=== PATIENT | male | born 1935 | race Caucasian/White ===

== ENCOUNTER → 2016-09-27 | Outpatient (CLI) | payer BC | LOC: BMCIMAGING 07:39 | PROVIDERS: ATTEND Family Medicine | DX: R60.1 Generalized edema (principal) ==

== ENCOUNTER → 2016-11-01 | Outpatient (CLI) | payer BC | LOC: BMCIMAGING 15:29 | PROVIDERS: ATTEND Internal Medicine Rheumatology | DX: M11.841 Other specified crystal arthropathies, right hand (principal); M11.842 Other specified crystal arthropathies, left hand ==

== ENCOUNTER → 2017-09-05 | Outpatient (CLI) | payer BC | LOC: FIMAGING 12:38 | PROVIDERS: ATTEND Orthopaedic Surgery | DX: Z01.818 Encounter for other preprocedural examination (principal); M25.861 Other specified joint disorders, right knee; M25.461 Effusion, right knee ==

== ENCOUNTER 2017-09-19 09:18 | Observation (INO) | payer OTHER, BC ==
--- NOTE | 2017-09-19 07:09 | PDHPUP ---
History & Physical Update H&P update statement: This history and physical update is based on an assessment of the patient which was completed after admission or registration (within 24 hours), but prior to the surgery/procedure. H&P update: H&P reviewed & patient examined, no change in patient's condition since H&P completed
[~2017-09-19 09:18] MED LIST: ROPIVACAINE 0.2% 80 MG, EPINEPHrine 0.2 MG, KETOROLAC TROMETHAMINE 30 MG in SYRINGE 0 ML IU ONE; TRANEXAMIC ACID 3,000 MG in NS (SYRINGE) 50 ML IRR ONE; TRANEXAMIC ACID 3,000 MG/50 ML BAG IRR ONE; VANCOMYCIN 1 GM VIAL ONE
[2017-09-19] MEDS ORDERED: DEXAMETHASONE 4 MG/ML VIAL IVP ONE (09:46)
[2017-09-19] MEDS ORDERED: FAMOTIDINE 20 MG TAB PO ONE (09:46)
[2017-09-19] MEDS ORDERED: ceFAZolin 2 GM/SWFI 2 GM/20 ML SYR IVP ONE (09:46)
[2017-09-19] MEDS ORDERED: ACETAMINOPHEN 325 MG TAB PO ONE (09:46)
[2017-09-19] MEDS ORDERED: LR 1,000 ML IV ONE (10:22)
[2017-09-19] MEDS ORDERED: MIDAZOLAM 2 MG/2 ML VIAL IVP ONE (10:23)
--- NOTE | 2017-09-19 10:23 | PDANEPAE ---
ANE Past Medical History - Cardiovascular History Hx Hypertension: Yes Hx Arrhythmias: No Hx Chest Pain: No Hx Coronary Artery / Peripheral Vascular Disease: No Hx CHF / Valvular Disease: No Hx Palpitations: No - Pulmonary History Hx COPD: No Hx Asthma/Reactive Airway Disease: No Hx Recent Upper Respiratory Infection: No Hx Oxygen in Use at Home: No Hx Sleep Apnea: No Sleep Apnea Screening Result - Last Documented: Positive - Neurologic History Hx Cerebrovascular Accident: No Hx Seizures: No Hx Dementia: No - Endocrine History Hx Diabetes: No - Renal History Hx Renal Disorders: Yes Renal History Comment: TWICE A DAY SELF CATHS - Liver History Hx Hepatic Disorders: No - Neurological & Psychiatric Hx Hx Neurological and Psychiatric Disorders: No - Cancer History Hx Cancer: Yes Cancer History Comment: SKIN - Congenital Disorder History Hx Congenital Disorders: No - GI History Hx Gastrointestinal Disorders: No - Other Health History Other Health History: TINNITUS. GOUT RT BIG TOE - Chronic Pain History Chronic Pain: Yes (RT KNEE) - Surgical History Prior Surgeries: GREEN LIGHT LASER 01/2011. BLADDER LASER X2. DISCECTOMY. TONSILLECTOMY. RT CATARACT. COLONOSCOPY ANE Review of Systems Review of Systems: - Exercise capacity METS (RN): 6 METS ANE Patient History - Allergies Allergies/Adverse Reactions: No Known Allergies Allergy (Verified 08/27/17 10:31) - Home Medications Home Medications: Irbesartan [Avapro 300 mg] 300 mg PO DAILY 08/27/17 [Last Taken 09/18/17] Metoprolol Succinate Xr [Toprol Xl 25 mg (*)] 25 mg PO DAILY 08/27/17 [Last Taken 09/18/17] Simvastatin 10 mg PO DAILY 08/27/17 [Last Taken 09/18/17] - NPO status NPO Since - Liquids (Date): 09/19/17 NPO Since - Liquids (Time): 07:00 NPO Since - Solids (Date): 10/16/17 NPO Since - Solids (Time): 22:00 - Anes Hx Anes Hx: no prior problems - Smoking Hx Smoking Status: Never smoked ANE Labs/Vital Signs - Vital Signs Blood Pressure: 140/85 Heart Rate: 66 Respiratory Rate: 14 O2 Sat (%): 97 Height: 173.99 cm Weight: 75.75 kg ANE Physical Exam - Airway Neck exam: FROM Mallampati Score: Class 2 Mouth exam: normal dental/mouth exam - Pulmonary Pulmonary: no respiratory distress, no rales or rhonchi, clear to auscultation - Cardiovascular Cardiovascular: regular rate and rhythym, no murmur, rub, or gallop ANE Anesthesia Plan Anesthesia Plan: spinal Regional Anesthesia: adductor canal FNB
[2017-09-19] MEDS ORDERED: MIDAZOLAM 2 MG/2 ML VIAL ONE (10:26)
[2017-09-19] MEDS ORDERED: PROPOFOL/EMULSION 500 MG/50 ML BOTTLE IV ONE (10:28)
[2017-09-19] MEDS ORDERED: fentaNYL 100 MCG/2 ML INJ IVP PRN (10:35)
[2017-09-19] MEDS ORDERED: LABETALOL HCL 5 MG/ML 20 ML MDV IVP PRN (10:35)
[2017-09-19] MEDS ORDERED: LR 500 ML IV PRN (10:35)
[2017-09-19] MEDS ORDERED: PROMETHAZINE HCL 25 MG/ML INJ IVP PRN ×2 (10:35→12:05)
[2017-09-19] MEDS ORDERED: NALOXONE HCL 0.4 MG/ML INJ IVP PRN (10:35)
[2017-09-19] MEDS ORDERED: ONDANSETRON 4 MG/2 ML VIAL IVP PRN ×2 (10:35→12:05)
[2017-09-19] MEDS ORDERED: ENALAPRILAT DIHYDRATE 1.25 MG/ML VIAL IVP PRN (10:35)
[2017-09-19] MEDS ORDERED: BUPIVACAINE/EPI 0.5% 30 ML SDV ONE (10:39)
[2017-09-19] MEDS ORDERED: DEXAMETHASONE 4 MG/ML VIAL ONE (10:58)
[2017-09-19] MEDS ORDERED: LACTULOSE 20 GM/30 ML UDCUP PO PRN (12:05)
[2017-09-19] MEDS ORDERED: ONDANSETRON DISINTEGRATING 4 MG TAB PO PRN (12:05)
[2017-09-19] MEDS ORDERED: DIPHENOXYLATE/ATROPINE LOMOTIL 1 TAB PO PRN (12:05)
[2017-09-19] MEDS ORDERED: PROMETHAZINE HCL 25 MG SUPPR PR PRN (12:05)
[2017-09-19] MEDS ORDERED: diphenhydrAMINE 25 MG CAP PO PRN (12:05)
[2017-09-19] MEDS ORDERED: CYCLOBENZAPRINE 10 MG TAB PO PRN (12:05)
[2017-09-19] MEDS ORDERED: POLYETHYLENE GLYCOL 3350 17 GM PKT PO PRN (12:05)
[2017-09-19] MEDS ORDERED: TEMAZEPAM 15 MG CAP PO PRN (12:05)
[2017-09-19] MEDS ORDERED: MAGNESIUM HYDROXIDE 30 ML UDCUP PO PRN (12:05)
[2017-09-19] MEDS ORDERED: METOCLOPRAMIDE 10 MG/2 ML VIAL IVP PRN (12:05)
[2017-09-19] MEDS ORDERED: BISACODYL 10 MG SUPP PR PRN (12:05)
[2017-09-19] MEDS ORDERED: oxyCODONE IR 5 MG TAB PO PRN (12:05)
--- NOTE | 2017-09-19 12:09 | POSTOPPROG ---
Post Op Note Date of Operation: 09/19/17 Surgeon: Thomas Alvarenga Senior Applications Developer: leonard alvarenga Anesthesiologist: dr. escobar Anesthesia: Spinal, Other (Specify) (adductor canal block) Pre-op Diagnosis: right knee OA Post-op Diagnosis: same Indication: right knee pain due to OA that failed conservative measures Procedure: R med MPL Findings: severe medial knee OA Inf/Abcess present in the surg proc area at time of surgery?: No EBL: 50-100
[2017-09-19] MEDS ORDERED: LR 1,000 ML IV SCH (12:30)
--- NOTE | 2017-09-19 12:31 | POSTANESTH ---
Post Anesthetic Evaluation Cardiovascular Status: Normal, Stable, Similar to Pre-Op Cond Respiratory Status: Normal, Stable, Similar to Pre-op Cond. Level of Consciousness/Mental Status: Can Participate in Eval, Alert and Oriented Pain Control: Adequate, Prn Tx Ordered Nausea/Vomiting Control: Adequate, Prn Tx Ordered Complications Possibly Related to Anesthesia: None Noted (Adductor canal nerve block done in PACU.)
[2017-09-19 12:52] VITALS: TEMP 97.2
[2017-09-19] MEDS ORDERED: ceFAZolin 2 GM/DEXTROSE 100 ML IV SCH (14:00)
[2017-09-19 14:24] VITALS: RESP 16
[2017-09-19 16:39] VITALS: O2SAT 97
[2017-09-19 16:40] VITALS: BP 157/88; PULSE 71
[2017-09-19] MEDS ORDERED: ceFAZolin 2 GM/SWFI 2 GM/20 ML SYR IVP SCH (17:00)
[2017-09-19] MEDS ORDERED: ACETAMINOPHEN 325 MG TAB PO SCH (18:00)
[2017-09-19] MEDS ORDERED: SENNOSIDES/DOCUSATE SODIUM TAB PO SCH (21:00)
[2017-09-19] MEDS ORDERED: FAMOTIDINE 20 MG TAB PO SCH (21:00)
[2017-09-19] MEDS ORDERED: ASPIRIN 81 MG CHEWABLE TAB PO SCH (21:00)
--- NOTE | 2017-09-20 02:03 | GOP ---
[f rep st] OPERATIVE REPORT DATE OF OPERATION: 09/19/2017 SURGEON: Erin Alonzo MD CHOPPER OPERATOR: DANIELE Matthews. ANESTHESIA: Spinal. PREOPERATIVE DIAGNOSIS: Right knee osteoarthritis. POSTOPERATIVE DIAGNOSIS: Right knee osteoarthritis. PROCEDURE PERFORMED: right medial compartment partial knee replacement with computer navigation and robotic assist. FINDINGS: ESTIMATED BLOOD LOSS: 30 cc. INDICATIONS: This is an 82-year-old gentleman with progressive pain of the right knee unresponsive to conservative care. Risks and benefits of surgical intervention were explained in detail. DESCRIPTION OF PROCEDURE: The patient was brought to the operating room and placed on the table in supine position. Spinal anesthesia was induced without difficulty. A pneumatic tourniquet was applied about the right proximal thigh and the leg was prepped and draped in sterile fashion. Attention was turned first to the distal aspect of the right femur. At 3 cm proximal to the lateral rise of the femur, 2 percutaneous half pins were placed for fixation of the femoral array. In a similar fashion, 2 pins were placed anterolateral on the tibia for fixation of the tibial array. External land marking and registration of the hip center was performed without difficulty. After exsanguination by elevation, the tourniquet was inflated to 250 mmHg. Incision was made from the tibial tuberosity to the superior pole of the patella. Dissection was carried out through the subcutaneous tissue to the deep fascia using Bovie electrocautery for hemostasis. Medial parapatellar arthrotomy was carried out to the superior pole of the patella. The medial collateral ligament was elevated and the infrapatellar fat pad was resected. Internal femoral and tibial registration was carried out without difficulty and the femoral and tibial checkpoints were placed and verified for accuracy. Attention was turned to the femur. The foot print for the size 5 femoral component was cut with the 6 mm bur using the [employer] robotic system and verified for accuracy against the CT based plan. The hole was cut for the femoral post. In a similar fashion, the 6 mm bur was used to cut the foot print for the size 4 tibial component using the [employer] system and verified for accuracy against the CT based plan. Attention was turned to the posterior aspect of the knee and remnants of the medial meniscus were excised. The posterior capsule was injected with ropivacaine, epinephrine and Toradol. Trial reduction was carried out and there was excellent range of motion, alignment and stability using the size 5 femoral component and the size 4 tibial component, 4 x 9 mm polyethylene. All trials were then removed. The joint was thoroughly irrigated and carefully dried. One package of cement and 1 gram of vancomycin were mixed in the vacuum mixer and placed on the fixation surfaces of all components. The components were implanted and all excess cement was thoroughly removed. Implant placement was verified against the CT view plan and found to be excellent. The tourniquet was deflated and all bleeders were coagulated. The wound was thoroughly irrigated and closed using interrupted sutures of 2-0 Vicryl for the joint capsule. The subcu was closed with 3-0 Vicryl and the skin with 4-0 Monocryl. Dermabond and Steri-Strips were applied, followed by a compressive dressing. The patient was then moved from the operating room to the recovery room in good condition, having tolerated the procedure well. CASE CLASSIFICATION: Clean. /[id number]/MODL [facility]TD[facility]
[2017-09-20] MEDS ORDERED: NON-FORMULARY NEW DRUG (Simvastatin [Simvastatin] 10 MG) PO SCH (09:00)
[2017-09-20] MEDS ORDERED: NON-FORMULARY NEW DRUG (Irbesartan [Avapro 300 Mg] 300 MG) PO SCH (09:00)
[2017-09-20] MEDS ORDERED: PRAVASTATIN SODIUM 20 MG TAB PO SCH (09:00)
[2017-09-20] MEDS ORDERED: IRBESARTAN 150 MG TAB PO SCH (09:00)
[2017-09-20] MEDS ORDERED: METOPROLOL SUCCINATE XR 25 MG TAB PO SCH (09:00)
--- NOTE | 2017-09-25 11:18 | GDS ---
[f rep st] DISCHARGE SUMMARY ADMISSION DIAGNOSIS: Right knee osteoarthritis. DISCHARGE DIAGNOSIS: Right knee osteoarthritis. PROCEDURE: Right medial compartment partial knee replacement with computer navigation and robotic as sist. VTE PROPHYLAXIS: BRIEF DESCRIPTION OF HOSPITAL STAY: Patient was admitted for an elective joint arthroplasty. The pa tient tolerated the procedure well and has passed physical therapy. The patient was given appropriat e antibiotic prophylaxis and venous thromboembolism prophylaxis. The patient's pain was well control led on oral pain medication, patient was holding down food, and had urinated. Decision was made to d ischarge the patient. The patient was given post-operative prescriptions pre-operatively. PLAN: To follow up as scheduled in Dr. Alonzo's office in 3 weeks. /[id number]/MODL
== END 2017-09-19 19:16 | disposition home or self-care (01) ==
LOC: INTOOBSV 09:18 → F3E 09:18 → F3N 12:21
PROVIDERS: ADMIT Orthopaedic Surgery; ATTEND Orthopaedic Surgery
DX: M17.11 Unilateral primary osteoarthritis, right knee (principal); I10 Essential (primary) hypertension
CPT/HCPCS: 20985; 27446; 73560; 97116; 97161; C1713; C1776; G8978; G8979; G8980; J0171; J0690; J1100; J1885; J2250; J2704; J2795; J3370

== ENCOUNTER → 2018-01-07 | Outpatient (CLI) | payer BC | LOC: FIMAGING 08:49 | PROVIDERS: ATTEND Orthopaedic Surgery | DX: M17.12 Unilateral primary osteoarthritis, left knee (principal) ==

== ENCOUNTER 2018-02-01 08:03 | Observation (INO) | payer BC ==
[~2018-02-01 08:03] MED LIST changes: -TRANEXAMIC ACID 3,000 MG/50 ML BAG IRR ONE; -VANCOMYCIN 1 GM VIAL ONE
[2018-02-01] MEDS ORDERED: FAMOTIDINE 20 MG TAB PO ONE (08:37)
[2018-02-01] MEDS ORDERED: ACETAMINOPHEN 325 MG TAB PO ONE (08:37)
[2018-02-01] MEDS ORDERED: DEXAMETHASONE 4 MG/ML VIAL IVP ONE (08:37)
[2018-02-01] MEDS ORDERED: ceFAZolin 2 GM/DEXTROSE 100 ML IV ONE (08:37)
[2018-02-01] MEDS ORDERED: LIDOCAINE 1% 2 ML INJ ID PRN (08:38)
[2018-02-01] MEDS ORDERED: LR 1,000 ML IV ONE (08:38)
--- NOTE | 2018-02-01 09:57 | POSTANESTH ---
Post Anesthetic Evaluation Cardiovascular Status: Normal, Stable Respiratory Status: Normal, Stable Level of Consciousness/Mental Status: Can Participate in Eval, Alert and Oriented Pain Control: Adequate, Prn Tx Ordered Nausea/Vomiting Control: Adequate, Prn Tx Ordered Complications Possibly Related to Anesthesia: None Noted Notes: U/S guided L AC nerve block placed upon arrival in PACU PSR for POPC. AC visualized. 100 mm Pajunk needle inserted in plane. Needle advanced to AC. Slow 2 mL incremental injections of 0.5% ropivacaine placed around canal. - heme on aspiration between aliquots. Pt tolerated block well. VSS throughout.
[2018-02-01] MEDS ORDERED: VANCOMYCIN 1 GM VIAL ONE (09:58)
[2018-02-01] MEDS ORDERED: TRANEXAMIC ACID 3,000 MG/50 ML BAG IRR ONE (09:58)
--- NOTE | 2018-02-01 10:45 | PDANEPAE ---
ANE History of Present Illness 82 yo male with L knee OA for L TKA. R TKA in 09/16. ANE Past Medical History - Cardiovascular History Hx Hypertension: Yes Hx Arrhythmias: Yes Hx Chest Pain: No Hx Coronary Artery / Peripheral Vascular Disease: Yes Hx CHF / Valvular Disease: No Hx Palpitations: No Cardiovascular History Comment: hyperlipidemia. murmur. CAD - no SOB/CP, goopd exercise tolerance prior to one month ago when knee started hurting. followed by [facility] - Pulmonary History Hx COPD: No Hx Asthma/Reactive Airway Disease: No Hx Recent Upper Respiratory Infection: No Hx Oxygen in Use at Home: No Hx Sleep Apnea: No Sleep Apnea Screening Result - Last Documented: Positive Pulmonary History Comment: duglas triggers - Neurologic History Hx Cerebrovascular Accident: No Hx Seizures: No Hx Dementia: No - Endocrine History Hx Diabetes: No Obesity: no - Renal History Hx Renal Disorders: Yes Renal History Comment: TWICE A DAY SELF CATHS. bph - Liver History Hx Hepatic Disorders: No - Neurological & Psychiatric Hx Hx Neurological and Psychiatric Disorders: No - Cancer History Hx Cancer: Yes Cancer History Comment: SKIN - Congenital Disorder History Hx Congenital Disorders: No - GI History Hx Gastrointestinal Disorders: No Gastrointestinal History Comment: hx of colonoscopy - Other Health History Other Health History: TINNITUS. GOUT RT BIG TOE. wears glasses - Chronic Pain History Chronic Pain: Yes (left knee) - Surgical History Prior Surgeries: 09/19/17 Right knee resurfacing with [facility]. 02/09/11 GREEN LIGHT LASER with Nolan. BLADDER LASER X2. DISCECTOMY. TONSILLECTOMY. RT CATARACT. COLONOSCOPY ANE Review of Systems Review of Systems: - Exercise capacity METS (RN): 6 METS - Systems Cardiac: Reports: no symptoms Respiratory: Reports: no symptoms Muscolosketal: Reports: joint pain ANE Patient History - Allergies Allergies/Adverse Reactions: No Known Allergies Allergy (Verified 01/16/18 10:35) - Home Medications Home Medications: Irbesartan [Avapro 300 mg] 300 mg PO DAILY 08/27/17 [Last Taken 01/31/18 07:00] Metoprolol Succinate Xr [Toprol Xl 25 mg (*)] 25 mg PO DAILY18 08/27/17 [Last Taken 01/31/18 18:00] Simvastatin 10 mg PO DAILY18 08/27/17 [Last Taken 01/31/18 18:00] Ibuprofen [Motrin (*)] 200 mg PO DAILY PRN 01/16/18 [Last Taken 01/25/18] Multivitamins [Multivitamin (*)] 1 each PO DAILY 01/16/18 [Last Taken 01/18/18] - NPO status NPO Since - Liquids (Date): 02/01/18 NPO Since - Liquids (Time): 07:00 NPO Since - Solids (Date): 01/31/18 NPO Since - Solids (Time): 21:00 - Anes Hx Anes Hx: no prior problems - Smoking Hx Smoking Status: Never smoked Marijuana use: No - Family Anes Hx Family Anes Hx: neg - N/A Family Hx Anesthesia Complications: none ANE Labs/Vital Signs - Vital Signs Blood Pressure: 141/86 Heart Rate: 75 Respiratory Rate: 16 O2 Sat (%): 95 Height: 173.99 cm Weight: 75.75 kg ANE Physical Exam - Airway Neck exam: FROM Mallampati Score: Class 2 Mouth exam: normal dental/mouth exam - Pulmonary Pulmonary: clear to auscultation - Cardiovascular Cardiovascular: regular rate and rhythym - ASA Status ASA Status: II ANE Anesthesia Plan Anesthesia Plan: spinal
[2018-02-01] MEDS ORDERED: LIDOCAINE 2% 5 ML SDV ONE (10:47)
[2018-02-01] MEDS ORDERED: fentaNYL 100 MCG/2 ML INJ ONE (10:48)
[2018-02-01] MEDS ORDERED: PROPOFOL/EMULSION 500 MG/50 ML BOTTLE IV ONE (10:48)
[2018-02-01] MEDS ORDERED: PHENYLEPHRINE HCL 100 MCG/ML SYR ONE (11:31)
[2018-02-01] MEDS ORDERED: ROPIVACAINE HCL 150 MG/30 ML INJ ONE (11:39)
[2018-02-01] MEDS ORDERED: DIPHENOXYLATE/ATROPINE LOMOTIL 1 TAB PO PRN (12:11)
[2018-02-01] MEDS ORDERED: LACTULOSE 20 GM/30 ML UDCUP PO PRN (12:11)
[2018-02-01] MEDS ORDERED: traMADol 50 MG TAB PO PRN (12:11)
[2018-02-01] MEDS ORDERED: CYCLOBENZAPRINE 10 MG TAB PO PRN (12:11)
[2018-02-01] MEDS ORDERED: TEMAZEPAM 15 MG CAP PO PRN (12:11)
[2018-02-01] MEDS ORDERED: diphenhydrAMINE 25 MG CAP PO PRN (12:11)
[2018-02-01] MEDS ORDERED: oxyCODONE IR 5 MG TAB PO PRN (12:11)
[2018-02-01] MEDS ORDERED: ONDANSETRON DISINTEGRATING 4 MG TAB PO PRN (12:11)
[2018-02-01] MEDS ORDERED: PROMETHAZINE HCL 25 MG/ML INJ IVP PRN (12:11)
[2018-02-01] MEDS ORDERED: METOCLOPRAMIDE 10 MG/2 ML VIAL IVP PRN (12:11)
[2018-02-01] MEDS ORDERED: BISACODYL 10 MG SUPP PR PRN (12:11)
[2018-02-01] MEDS ORDERED: PROMETHAZINE HCL 25 MG SUPPR PR PRN (12:11)
[2018-02-01] MEDS ORDERED: POLYETHYLENE GLYCOL 3350 17 GM PKT PO PRN (12:11)
[2018-02-01] MEDS ORDERED: MAGNESIUM HYDROXIDE 30 ML UDCUP PO PRN (12:11)
[2018-02-01] MEDS ORDERED: ONDANSETRON 4 MG/2 ML VIAL IVP PRN (12:11)
--- NOTE | 2018-02-01 12:11 | POSTOPPROG ---
Post Op Note Date of Operation: 02/01/18 Surgeon: Thomas Alvarenga [employer] Representative: leonard alvarenga Anesthesiologist: dr. edwards Anesthesia: Spinal, Other (Specify) (adductor canal block) Pre-op Diagnosis: left knee OA Post-op Diagnosis: same Indication: left knee pain Procedure: L medial knee arthroplasty robot assisted, computer navigation Findings: severe medial knee OA, left knee Inf/Abcess present in the surg proc area at time of surgery?: No EBL: 50-100
[2018-02-01] MEDS ORDERED: LR 1,000 ML IV SCH (12:30)
[2018-02-01] MEDS ORDERED: CEFAZOLIN 2 GM/DEXTROSE/100 ML BAG IV ONE (15:21)
[2018-02-01] MEDS ORDERED: ceFAZolin 2 GM/DEXTROSE 100 ML IV SCH (16:00)
--- NOTE | 2018-02-01 17:46 | SOAPPROG ---
SOAP Progress Note Assessment/Plan: Assessment: sammie is doing well s/p left medial partial knee arthroplasty pain is well controlled patient has demonstrated ability to ambulate with walker after spinal anesthesia patient self cath's prior to surgery patient is eager for d/c to home. despite PT order at 12:11 today once surgery was completed. PT has not seen the patient. PT states patient was not up on the floor until after 3pm, but that was due to reasons' outside of patient's control. patient may be d/c to home without PT has patient has recently recovered from a right partial knee arthroplasty and states he does not need PT. Plan: 02/01/18 17:43 Subjective: Spoke with nurse on the phone regarding patient. October expressed that patient would like to go home today, self cath's, has demonstrated ability to ambulate with walker and states patient does not feel he needs PT. October states that he was not up to the floor until 4pm which is 4 hours after surgery was completed and orders were placed for PT. pain is well controlled. Objective: Vital Signs Temp Pulse Resp BP Pulse Ox 36.4 C 71 18 135/78 H 95 02/01/18 17:28 02/01/18 17:28 02/01/18 17:28 02/01/18 17:28 02/01/18 17:28 01/31/18 02/01/18 02/02/18 05:59 05:59 05:59 Intake Total 1490 Balance 1490 ICD10 Worksheet Patient Problems: Problems Problem Status Onset Primary localized osteoarthritis of left knee Acute Primary localized osteoarthritis of right knee Acute
[2018-02-01] MEDS ORDERED: METOPROLOL SUCCINATE XR 25 MG TAB PO SCH (18:00)
[2018-02-01] MEDS ORDERED: ACETAMINOPHEN 325 MG TAB PO SCH (18:00)
[2018-02-01] MEDS ORDERED: PRAVASTATIN SODIUM 20 MG TAB PO SCH (18:00)
[2018-02-01 18:29] VITALS: BP 148/84
[2018-02-01] MEDS ORDERED: ASPIRIN 81 MG CHEWABLE TAB PO SCH (21:00)
[2018-02-01] MEDS ORDERED: SENNOSIDES/DOCUSATE SODIUM TAB PO SCH (21:00)
[2018-02-01] MEDS ORDERED: FAMOTIDINE 20 MG TAB PO SCH (21:00)
[2018-02-02] MEDS ORDERED: IRBESARTAN 150 MG TAB PO SCH (09:00)
--- NOTE | 2018-02-04 07:57 | GOP ---
[f rep st] OPERATIVE REPORT DATE OF OPERATION: 02/01/2018 SURGEON: Erin Alonzo MD NEUROSURGEON: Erin Alonzo MD EMS MANAGER: DANIELE Matthews ANESTHESIA: Spinal. PREOPERATIVE DIAGNOSIS: Left knee osteoarthritis. POSTOPERATIVE DIAGNOSIS: Left knee osteoarthritis. PROCEDURE PERFORMED: Left medial compartment partial knee replacement with computer navigation and robotic assist. FINDINGS: Severe medial compartment osteoarthritis, mild patellofemoral osteoarthritis. ESTIMATED BLOOD LOSS: 30 cc. INDICATIONS: The patient is an 82-year-old male with severe and progressive pain and deformity of the left knee unresponsive to conservative care. The risks and benefits of surgical intervention were explained in detail. DESCRIPTION OF PROCEDURE: The patient was brought to the operating room and placed on the table in supine position. Spinal anesthesia was induced without difficulty. A pneumatic tourniquet was applied about the left proximal thigh and the leg was prepped and draped in sterile fashion. Attention was turned first to the distal aspect of the left femur. At 3 cm proximal to the lateral rise of the femur, 2 percutaneous half pins were placed for fixation of the femoral array. In a similar fashion, 2 pins were placed anterolateral on the tibia for fixation of the tibial array. External land marking and registration of the hip center was performed without difficulty. After exsanguination by elevation, the tourniquet was inflated to 250 mmHg. Incision was made from the tibial tuberosity to the superior pole of the patella. Dissection was carried out through the subcutaneous tissue to the deep fascia using Bovie electrocautery for hemostasis. Medial parapatellar arthrotomy was carried out to the superior pole of the patella. The medial collateral ligament was elevated and the infrapatellar fat pad was resected. Internal femoral and tibial registration was carried out without difficulty and the femoral and tibial checkpoints were placed and verified for accuracy. Attention was turned to the femur. The foot print for the size 5 femoral component was cut with the 6 mm bur using the [employer] robotic system and verified for accuracy against the CT based plan. The hole was cut for the femoral post. In a similar fashion, the 6 mm bur was used to cut the foot print for the size 5 tibial component using the [employer] system and verified for accuracy against the CT based plan. Attention was turned to the posterior aspect of the knee and remnants of the medial meniscus were excised. The posterior capsule was injected with ropivacaine, epinephrine and Toradol. Trial reduction was carried out and there was excellent range of motion, alignment and stability using the size 5 femoral component and the size5 tibial component, 5 x8 mm polyethylene. All trials were then removed. The joint was thoroughly irrigated and carefully dried. One package of cement and 1 gram of vancomycin were mixed in the vacuum mixer and placed on the fixation surfaces of all components. The components were implanted and all excess cement was thoroughly removed. Implant placement was verified against the CT view plan and found to be excellent. The tourniquet was deflated and all bleeders were coagulated. The wound was thoroughly irrigated and closed using interrupted sutures of 2-0 Vicryl for the joint capsule. The subcutaneous tissue was closed with 3-0 Vicryl and the skin with 4-0 Monocryl. Dermabond and Steri-Strips were applied, followed by a compressive dressing. The patient was then moved from the operating room to the recovery room in good condition, having tolerated the procedure well. /[id number]/MODL and [id number]/MODL [facility]
--- NOTE | 2018-02-07 11:01 | GDS ---
[f rep st] DISCHARGE SUMMARY ADMISSION DIAGNOSIS: Left knee osteoarthritis. DISCHARGE DIAGNOSIS: Left knee osteoarthritis. PROCEDURE: Left partial knee arthroplasty, medial compartment, robotic-assisted. VTE PROPHYLAXIS: Recommend aspirin 81 mg. BRIEF DESCRIPTION OF HOSPITAL STAY: Patient was admitted for an elective joint arthroplasty. The pa bryon tolerated the procedure well and has passed physical therapy. The patient was given appropriat e antibiotic prophylaxis and venous thromboembolism prophylaxis. The patient's pain was well control led on oral pain medication, patient was holding down food, and had urinated. Decision was made to d ischarge the patient. The patient was given post-operative prescriptions pre-operatively. PLAN: To follow up as scheduled with Dr. Alonzo's office on March 04 at 8:45. /[id number]/MODL
== END 2018-02-01 19:18 | disposition home or self-care (01) ==
LOC: FSGY 08:03 → EDSTATUS 11:15 → F3E 12:11 → F3N 15:35
PROVIDERS: ADMIT Orthopaedic Surgery; ATTEND Orthopaedic Surgery
PROC: 8E0YXCZ Robotic Assisted Procedure of Lower Extremity (ICD-10-PCS; principal; 2018-02-01 11:15)
PROC: 0SRD0JZ Replacement of Left Knee Joint with Synthetic Substitute, Open Approach (ICD-10-PCS; principal; 2018-02-01 11:15)
DX: M17.12 Unilateral primary osteoarthritis, left knee (principal); I10 Essential (primary) hypertension; E78.5 Hyperlipidemia, unspecified; I25.10 Atherosclerotic heart disease of native coronary artery without angina pectoris; M10.9 Gout, unspecified; H93.19 Tinnitus, unspecified ear; Z96.651 Presence of right artificial knee joint
CPT/HCPCS: 20985; 27446; 73560; G0378; C1713; J0171; J0690; J1100; J1885; J2370; J2704; J2795; J3010; J3370